=== PATIENT | female | born 1960 | race African-American/Black ===

== ENCOUNTER 2020-07-21 01:57 | Inpatient (IN) | payer MEDICAID, OTHER ==
[~2020-07-21] VITALS: Ht 170.2 cm; Wt 74.8 kg
[~2020-07-21 01:57] MED LIST: AMLO10TA4 PO; Aspirin PO; CLOP-31 PO; Furosemide PO; Isosorbide Mononitrate PO; QUET25TA PO
[2020-07-21] MEDS ORDERED: NITROGLYCERIN OINT 1GM/INCH UDPKT TD ONE (02:30)
[2020-07-21] MEDS ORDERED: LORAZEPAM 2MG/ML CPJ IV ONE (02:30)
[2020-07-21] MEDS ORDERED: FUROSEMIDE 40MG/4ML VIAL IV ONE (02:30)
[2020-07-21 02:44] LABS: BASOPHILS % 0.9 % (0.0-2.0); EOSINOPHILS % 1.6 % (0.0-5.0); HEMATOCRIT. 39.5 % (36.0-48.0); HEMOGLOBIN. 12.8 g/dL (12.0-16.0); LYMPHOCYTES % 30.3 % (20.0-50.0); MEAN CORPUSCULAR HEMOGLOBIN 28.8 pg (28.0-32.0); MEAN CORPUSCULAR VOLUME 89.1 fL (81.0-99.0); MEAN PLATELET VOLUME 8.6 fl (7.4-10.4); MONOCYTES % 9.8 % (2.0-8.0); NEUTROPHILS % 57.4 % (40.0-76.0); PLATELET 278 x1000/uL (130-400); RED BLOOD CELL COUNT 4.43 mill/uL (4.2-5.4); RED CELL DISTRIBUTION WIDTH 15.9 % (11.6-14.6)
[2020-07-21 02:47] LABS: CHLORIDE 108 mEq/L (98-107)
[2020-07-21 02:51] LABS: ETHANOL BLOOD < 10 mg/dL
[2020-07-21 06:08] LABS: *COCAINE SCREEN URINE PRESUMTIVE POSITIVE (NEGATIVE)
[2020-07-21 06:09] LABS: *AMPHETAMINES SCREEN URINE NEGATIVE (NEGATIVE); *BARBITURATES SCREEN URINE NEGATIVE (NEGATIVE); *BENZODIAZEPINES SCREEN URINE NEGATIVE (NEGATIVE); CANNABINOID URINE SCREEN NEGATIVE (NEGATIVE); METHADONE URINE SCREEN NEGATIVE (NEGATIVE); OPIATES URINE SCREEN NEGATIVE (NEGATIVE); PHENCYCLIDINE URINE SCREEN NEGATIVE (NEGATIVE)
[2020-07-21] MEDS: POTASSIUM CHLORIDE 20MEQ TABLET SR PO SCH (10:25)
[2020-07-21] MEDS: FUROSEMIDE 40MG/4ML VIAL IVP SCH ×2 (10:25→18:03)
[2020-07-21] MEDS: ASPIRIN 81MG TABLET PO SCH (10:25)
[2020-07-21 10:35] VITALS: BP 109/83
[2020-07-21 12:00] VITALS: BP 103/79
[2020-07-21] MEDS: AMIODARONE HCL 200 MG TABLET PO SCH ×2 (12:09→18:04)
[2020-07-21] MEDS: DILTIAZEM HCL 30MG TABLET PO SCH ×2 (14:00→22:18)
[2020-07-21 16:00] VITALS: BP 119/80
[2020-07-21] MEDS ORDERED: POTASSIUM CHLORIDE 20MEQ TABLET SR PO SCH (17:45)
[2020-07-21] MEDS: SPIRONOLACTONE 25MG TABLET PO SCH (18:04)
[2020-07-21] MEDS ORDERED: QUETIAPINE FUMARATE 50MG TABLET PO SCH (21:00)
[2020-07-21] MEDS: HYDROCODONE/ACETAMINOPHEN 5/325MG TABLET PO PRN (22:20)
[2020-07-22] VITALS: BP 104/49
[2020-07-22 04:00] VITALS: BP 99/53
[2020-07-22] MEDS: DILTIAZEM HCL 30MG TABLET PO SCH ×3 (06:00→21:05)
[2020-07-22 07:52] LABS: BASOPHILS % 0.9 % (0.0-2.0); EOSINOPHILS % 2.5 % (0.0-5.0); HEMATOCRIT. 40.2 % (36.0-48.0); HEMOGLOBIN. 12.6 g/dL (12.0-16.0); LYMPHOCYTES % 27.5 % (20.0-50.0); MEAN CORPUSCULAR HEMOGLOBIN 27.9 pg (28.0-32.0); MEAN CORPUSCULAR VOLUME 89.2 fL (81.0-99.0); MEAN PLATELET VOLUME 9.6 fl (7.4-10.4); MONOCYTES % 11.2 % (2.0-8.0); NEUTROPHILS % 57.9 % (40.0-76.0); PLATELET 247 x1000/uL (130-400); RED BLOOD CELL COUNT 4.51 mill/uL (4.2-5.4)
[2020-07-22 07:54] LABS: CHLORIDE 105 mEq/L (98-107)
[2020-07-22 08:00] VITALS: BP 100/66
[2020-07-22] MEDS: ASPIRIN 81MG TABLET PO SCH (08:38)
[2020-07-22] MEDS: SPIRONOLACTONE 25MG TABLET PO SCH (08:38)
[2020-07-22] MEDS: POTASSIUM CHLORIDE 20MEQ TABLET SR PO SCH (08:39)
[2020-07-22] MEDS: AMIODARONE HCL 200 MG TABLET PO SCH ×3 (08:39→17:15)
[2020-07-22] MEDS: FUROSEMIDE 40MG/4ML VIAL IVP SCH ×2 (08:40→17:00)
[2020-07-22] MEDS: ENOXAPARIN 40MG/0.4ML SYR SUBCUT SCH (08:41)
[2020-07-22] MEDS ORDERED: *PATIENT'S OWN MEDICATION STORAGE XX SCH (10:00)
[2020-07-22 12:00] VITALS: BP 101/74
[2020-07-22] MEDS ORDERED: POTA20TA82 PO (12:20)
[2020-07-22] MEDS ORDERED: SPIR25TA PO (12:20)
[2020-07-22] MEDS ORDERED: ASPI-1406 MT (12:20)
[2020-07-22] MEDS ORDERED: CARV3.1242 MT (12:20)
[2020-07-22] MEDS ORDERED: LOSA25TA26 MT (12:20)
[2020-07-22] MEDS ORDERED: FURO-151 MT (12:20)
[2020-07-22] MEDS ORDERED: BUDE0.5A3 NEB (12:35)
[2020-07-22] MEDS: HYDROCODONE/ACETAMINOPHEN 5/325MG TABLET PO PRN ×2 (12:36→22:52)
[2020-07-22] MEDS ORDERED: AMI2 MT (13:00)
[2020-07-22 14:45] VITALS: BP_SYST 103; BP_SYST 105; BP_DIAS 55; BP_DIAS 74
[2020-07-22 20:00] VITALS: BP 114/89
[2020-07-22] MEDS: OLANZAPINE 10MG TABLET PO SCH (21:05)
[2020-07-22] MEDS ORDERED: CLONAZEPAM 0.5MG TABLET PO PRN (22:00)
[2020-07-22] MEDS ORDERED: OLANZAPINE 5MG TABLET PO PRN (22:00)
[2020-07-22] MEDS ORDERED: CLONAZEPAM 0.5MG TABLET PO SCH (22:00)
[2020-07-23] VITALS: BP 109/81
[2020-07-23 04:00] VITALS: BP 103/70
[2020-07-23] MEDS: DILTIAZEM HCL 30MG TABLET PO SCH ×2 (05:41→13:03)
[2020-07-23] MEDS: AMIODARONE HCL 200 MG TABLET PO SCH ×2 (06:23→12:15)
[2020-07-23 08:00] VITALS: BP 114/75
[2020-07-23] MEDS: ENOXAPARIN 40MG/0.4ML SYR SUBCUT SCH (09:59)
[2020-07-23] MEDS: SPIRONOLACTONE 25MG TABLET PO SCH (09:59)
[2020-07-23] MEDS: POTASSIUM CHLORIDE 20MEQ TABLET SR PO SCH (09:59)
[2020-07-23] MEDS: OLANZAPINE 10MG TABLET PO SCH (09:59)
[2020-07-23] MEDS: ASPIRIN 81MG TABLET PO SCH (09:59)
[2020-07-23] MEDS: FUROSEMIDE 40MG/4ML VIAL IVP SCH (10:00)
[2020-07-23] MEDS ORDERED: IPRATROPIUM/ALBUTEROL 0.5-3(2.5)MG/3ML NEB HHN PRN (10:45)
[2020-07-23 12:00] VITALS: BP 103/74
[2020-07-23] MEDS ORDERED: OLAN10TA19 PO (12:37)
== END 2020-07-23 14:34 | disposition home or self-care (01) | DRG 194 ==
LOC: ER 01:57 → 5WST 04:20 → ENRESERV 08:00 → 5WST 10:30
PROVIDERS: ADMIT Internal Medicine; ATTEND Internal Medicine
DX: I11.0 Hypertensive heart disease with heart failure (principal); I50.23 Acute on chronic systolic (congestive) heart failure; E44.1 Mild protein-calorie malnutrition; E87.8 Other disorders of electrolyte and fluid balance, not elsewhere classified; F14.90 Cocaine use, unspecified, uncomplicated; F17.210 Nicotine dependence, cigarettes, uncomplicated; F20.9 Schizophrenia, unspecified; F43.10 Post-traumatic stress disorder, unspecified; I25.10 Atherosclerotic heart disease of native coronary artery without angina pectoris; I27.20 Pulmonary hypertension, unspecified; I42.9 Cardiomyopathy, unspecified; I47.1 Supraventricular tachycardia; J44.9 Chronic obstructive pulmonary disease, unspecified; M19.90 Unspecified osteoarthritis, unspecified site; R09.89 Other specified symptoms and signs involving the circulatory and respiratory systems; Z20.822 Contact with and (suspected) exposure to COVID-19; Z91.19 Patient's noncompliance with other medical treatment and regimen; Z88.0 Allergy status to penicillin; Z79.899 Other long term (current) drug therapy; Z79.82 Long term (current) use of aspirin; Z71.51 Drug abuse counseling and surveillance of drug abuser; Z68.25 Body mass index [BMI] 25.0-25.9, adult; I25.2 Old myocardial infarction
CPT/HCPCS: 36415; 71045; 80048; 80053; 80061; 80305; 80320; 83880; 84443; 84484; 85025; 87426; 93005; 93306; 99291; J1650; J1940; J2060; G0480

== ENCOUNTER 2020-08-04 00:35 | Emergency (ER) | payer MEDICAID ==
[~2020-08-04] VITALS: Ht 165.1 cm; Wt 56.0 kg
[~2020-08-04 00:35] MED LIST changes: +AMI2 MT; -AMLO10TA4 PO; +ASPI-1406 MT; +BUDE0.5A3 NEB; +CARV3.1242 MT; +FURO-151 MT; +LOSA25TA26 MT; +OLAN10TA19 PO; +POTA20TA82 PO; +SPIR25TA PO
[2020-08-04] MEDS ORDERED: FUROSEMIDE 40MG/4ML VIAL IV ONE (01:00)
[2020-08-04 01:20] LABS: BASOPHILS % 1.2 % (0.0-2.0); EOSINOPHILS % 1.3 % (0.0-5.0); HEMATOCRIT. 42.1 % (36.0-48.0); HEMOGLOBIN. 13.7 g/dL (12.0-16.0); LYMPHOCYTES % 21.3 % (20.0-50.0); MEAN CORPUSCULAR HEMOGLOBIN 29.2 pg (28.0-32.0); MEAN CORPUSCULAR VOLUME 89.6 fL (81.0-99.0); MEAN PLATELET VOLUME 9.1 fl (7.4-10.4); MONOCYTES % 7.6 % (2.0-8.0); NEUTROPHILS % 68.6 % (40.0-76.0); PLATELET 238 x1000/uL (130-400); RED CELL DISTRIBUTION WIDTH 16.7 % (11.6-14.6)
[2020-08-04 01:27] LABS: CHLORIDE 111 mEq/L (98-107)
[2020-08-04 14:21] VITALS: BP 145/99
== END 2020-08-04 14:23 | disposition home or self-care (01) ==
LOC: ER 00:35
DX: T40.5X1A Poisoning by cocaine, accidental (unintentional), initial encounter (principal); R07.89 Other chest pain; F14.188 Cocaine abuse with other cocaine-induced disorder; Y92.89 Other specified places as the place of occurrence of the external cause; R79.89 Other specified abnormal findings of blood chemistry; I11.0 Hypertensive heart disease with heart failure; I50.9 Heart failure, unspecified; I25.2 Old myocardial infarction; Z86.73 Personal history of transient ischemic attack (TIA), and cerebral infarction without residual deficits; Z79.82 Long term (current) use of aspirin; Z79.899 Other long term (current) drug therapy
CPT/HCPCS: 36415; 71045; 80053; 80320; 83880; 84484; 85025; 93005; 96374; 99285; J1940; G0480

== ENCOUNTER 2020-08-15 04:31 | Inpatient (IN) | payer MEDICAID ==
[~2020-08-15] VITALS: Ht 162.6 cm; Wt 68.0 kg
[2020-08-15] MEDS ORDERED: LORAZEPAM 2MG/ML CPJ IV ONE (06:45)
[2020-08-15 07:00] LABS: BASOPHILS % 0.7 % (0.0-2.0); EOSINOPHILS % 3.1 % (0.0-5.0); HEMOGLOBIN. 12.8 g/dL (12.0-16.0); LYMPHOCYTES % 19.9 % (20.0-50.0); MEAN CORPUSCULAR HEMOGLOBIN 27.9 pg (28.0-32.0); MEAN PLATELET VOLUME 9.2 fl (7.4-10.4); MONOCYTES % 10.1 % (2.0-8.0); NEUTROPHILS % 66.2 % (40.0-76.0); PLATELET 294 x1000/uL (130-400); RED BLOOD CELL COUNT 4.61 mill/uL (4.2-5.4)
[2020-08-15 07:03] LABS: CHLORIDE 111 mEq/L (98-107)
[2020-08-15] MEDS ORDERED: ENOXAPARIN 100MG/ML SYR SUBCUT ONE (08:30)
[2020-08-15] MEDS ORDERED: ASPIRIN 81MG TABLET PO ONE (08:30)
[2020-08-15] MEDS: NITROGLYCERIN 0.4MG TABLET SL SL PRN ×2 (08:39→10:23)
[2020-08-15] MEDS ORDERED: ONDANSETRON HCL 4MG/2ML INJ IV PRN (13:15)
[2020-08-15] MEDS ORDERED: LOSARTAN POTASSIUM 50 MG TABLET PO SCH (13:15)
[2020-08-15] MEDS ORDERED: ACETAMINOPHEN 325MG TABLET PO PRN (13:15)
[2020-08-15] MEDS ORDERED: LORAZEPAM 2MG/ML CPJ IV PRN (13:30)
[2020-08-15 13:39] VITALS: BP 151/58
[2020-08-15] MEDS ORDERED: HYDR-4350 MT (13:41)
[2020-08-15] MEDS ORDERED: FUROSEMIDE 40MG/4ML VIAL IVP SCH (15:30)
[2020-08-15 15:38] VITALS: BP 160/107
[2020-08-15 15:46] VITALS: BP 151/107
[2020-08-15 16:00] VITALS: BP 151/78
[2020-08-15] MEDS ORDERED: IPRATROPIUM/ALBUTEROL 0.5-3(2.5)MG/3ML NEB HHN PRN (16:45)
[2020-08-15] MEDS ORDERED: ENOXAPARIN 60MG/0.6ML SYR SUBCUT SCH (21:00)
[2020-08-16] MEDS ORDERED: ASPIRIN 81MG TABLET PO SCH (09:00)
== END 2020-08-15 17:00 | disposition left against medical advice (07) | DRG 190 ==
LOC: ER 04:53 → 3WST 11:19 → ENRESERV 12:21
PROVIDERS: ADMIT Internal Medicine; ATTEND Internal Medicine
DX: I21.4 Non-ST elevation (NSTEMI) myocardial infarction (principal); D72.819 Decreased white blood cell count, unspecified; I11.0 Hypertensive heart disease with heart failure; E11.9 Type 2 diabetes mellitus without complications; E44.0 Moderate protein-calorie malnutrition; E78.5 Hyperlipidemia, unspecified; E87.8 Other disorders of electrolyte and fluid balance, not elsewhere classified; F14.10 Cocaine abuse, uncomplicated; F17.210 Nicotine dependence, cigarettes, uncomplicated; F20.9 Schizophrenia, unspecified; I07.1 Rheumatic tricuspid insufficiency; I25.10 Atherosclerotic heart disease of native coronary artery without angina pectoris; I27.20 Pulmonary hypertension, unspecified; I42.0 Dilated cardiomyopathy; Z53.29 Procedure and treatment not carried out because of patient's decision for other reasons; I50.23 Acute on chronic systolic (congestive) heart failure; J44.9 Chronic obstructive pulmonary disease, unspecified; I47.1 Supraventricular tachycardia; I25.2 Old myocardial infarction; Z86.73 Personal history of transient ischemic attack (TIA), and cerebral infarction without residual deficits; Z91.19 Patient's noncompliance with other medical treatment and regimen; Z88.1 Allergy status to other antibiotic agents; Z79.899 Other long term (current) drug therapy; Z79.82 Long term (current) use of aspirin; Z71.6 Tobacco abuse counseling
CPT/HCPCS: 36415; 71045; 80053; 80061; 82962; 83880; 84484; 85025; 93005; 99291; J1650; J2060

== ENCOUNTER 2020-08-16 07:21 | Inpatient (IN) | payer MEDICAID ==
[~2020-08-16] VITALS: Ht 172.7 cm; Wt 61.2 kg
[2020-08-16] VITALS (9 sets, daily range): BP systolic 104–143; BP diastolic 37–96
[~2020-08-16 07:21] MED LIST changes: +HYDR-4350 MT
[2020-08-16 08:03] LABS: BASOPHILS % 0.7 % (0.0-2.0); EOSINOPHILS % 0.6 % (0.0-5.0); HEMATOCRIT. 43.2 % (36.0-48.0); HEMOGLOBIN. 13.5 g/dL (12.0-16.0); LYMPHOCYTES % 18.5 % (20.0-50.0); MEAN CORPUSCULAR HEMOGLOBIN 27.8 pg (28.0-32.0); MEAN CORPUSCULAR VOLUME 88.8 fL (81.0-99.0); MEAN PLATELET VOLUME 9.2 fl (7.4-10.4); MONOCYTES % 11.5 % (2.0-8.0); NEUTROPHILS % 68.7 % (40.0-76.0); PLATELET 287 x1000/uL (130-400); RED BLOOD CELL COUNT 4.86 mill/uL (4.2-5.4); RED CELL DISTRIBUTION WIDTH 16.9 % (11.6-14.6)
[2020-08-16 08:09] LABS: CHLORIDE 107 mEq/L (98-107)
[2020-08-16] MEDS ORDERED: ENOXAPARIN 80MG/0.8ML SYR SUBCUT ONE (10:15)
[2020-08-16] MEDS ORDERED: ASPIRIN 325MG EC TABLET PO ONE (10:15)
[2020-08-16] MEDS: MORPHINE SULFATE 2 MG/ML CPJ (NOT FOR IM USE) IV PRN (13:29)
[2020-08-16 14:38] LABS: *AMPHETAMINES SCREEN URINE NEGATIVE (NEGATIVE); *BARBITURATES SCREEN URINE NEGATIVE (NEGATIVE); *BENZODIAZEPINES SCREEN URINE NEGATIVE (NEGATIVE); *COCAINE SCREEN URINE NEGATIVE (NEGATIVE); METHADONE URINE SCREEN NEGATIVE (NEGATIVE); OPIATES URINE SCREEN PRESUMTIVE POSITIVE (NEGATIVE); PHENCYCLIDINE URINE SCREEN NEGATIVE (NEGATIVE)
[2020-08-16 14:39] LABS: CANNABINOID URINE SCREEN NEGATIVE (NEGATIVE)
[2020-08-16] MEDS ORDERED: CLOPIDOGREL 75MG TABLET PO NR (15:15)
[2020-08-16] MEDS ORDERED: NITROGLYCERIN 0.4MG TABLET SL SL PRN (15:15)
[2020-08-16] MEDS ORDERED: ATORVASTATIN CALCIUM 40MG TABLET PO NR (15:15)
[2020-08-16] MEDS ORDERED: ACETAMINOPHEN 325MG TABLET PO PRN (15:15)
[2020-08-16] MEDS ORDERED: ONDANSETRON HCL 4MG/2ML INJ IV PRN (15:15)
[2020-08-16] MEDS ORDERED: CLONIDINE 0.1MG TABLET PO PRN (15:15)
[2020-08-16] MEDS ORDERED: HYDRALAZINE 20MG/ML VIAL IV PRN (15:15)
[2020-08-16] MEDS: AMLODIPINE 10MG TABLET PO SCH (16:25)
[2020-08-16] MEDS: MORPHINE SULFATE 4 MG/ML CPJ (NOT FOR IM USE) IV PRN ×2 (19:31→23:37)
[2020-08-16] MEDS: ENOXAPARIN 60MG/0.6ML SYR SUBCUT SCH (20:34)
[2020-08-16] MEDS ORDERED: TRAZODONE HCL 50MG TABLET PO PRN (21:00)
[2020-08-17] VITALS (30 sets, daily range): BP systolic 104–146; BP diastolic 34–98
[2020-08-17] MEDS: MORPHINE SULFATE 2 MG/ML CPJ (NOT FOR IM USE) IV PRN ×4 (04:13→18:49)
[2020-08-17 05:56] LABS: BASOPHILS % 1.2 % (0.0-2.0); EOSINOPHILS % 1.7 % (0.0-5.0); HEMATOCRIT. 40.9 % (36.0-48.0); LYMPHOCYTES % 21.8 % (20.0-50.0); MEAN CORPUSCULAR HEMOGLOBIN 28.4 pg (28.0-32.0); MEAN CORPUSCULAR VOLUME 89.6 fL (81.0-99.0); MEAN PLATELET VOLUME 9.1 fl (7.4-10.4); MONOCYTES % 13.6 % (2.0-8.0); NEUTROPHILS % 61.7 % (40.0-76.0); PLATELET 291 x1000/uL (130-400); RED BLOOD CELL COUNT 4.57 mill/uL (4.2-5.4); RED CELL DISTRIBUTION WIDTH 17.2 % (11.6-14.6)
[2020-08-17 06:04] LABS: LDL CHOLESTEROL 93 mg/dL (5-100)
[2020-08-17 06:14] LABS: CHLORIDE 106 mEq/L (98-107); HDL CHOLESTEROL 39 mg/dL (40-59)
[2020-08-17 06:24] LABS: INR 1.1; PROTHROMBIN TIME 11.9 sec (9.6-11.0)
[2020-08-17] MEDS: CLOPIDOGREL 75MG TABLET PO SCH (09:57)
[2020-08-17] MEDS: AMLODIPINE 10MG TABLET PO SCH (09:58)
[2020-08-17] MEDS: ENOXAPARIN 60MG/0.6ML SYR SUBCUT SCH ×2 (09:59→21:00)
[2020-08-17] MEDS: ASPIRIN 81MG EC TABLET PO SCH (10:01)
[2020-08-17] MEDS ORDERED: MORPHINE SULFATE 4 MG/ML CPJ (NOT FOR IM USE) IV PRN (13:00)
[2020-08-18] VITALS (28 sets, daily range): BP systolic 94–146; BP diastolic 45–114
[2020-08-18 05:50] LABS: BASOPHILS % 0.6 % (0.0-2.0); EOSINOPHILS % 2.9 % (0.0-5.0); HEMATOCRIT. 36.6 % (36.0-48.0); HEMOGLOBIN. 11.6 g/dL (12.0-16.0); LYMPHOCYTES % 25.4 % (20.0-50.0); MEAN CORPUSCULAR HEMOGLOBIN 28.6 pg (28.0-32.0); MEAN CORPUSCULAR VOLUME 90.2 fL (81.0-99.0); MEAN PLATELET VOLUME 9.2 fl (7.4-10.4); MONOCYTES % 11.9 % (2.0-8.0); NEUTROPHILS % 59.2 % (40.0-76.0); PLATELET 259 x1000/uL (130-400); RED BLOOD CELL COUNT 4.06 mill/uL (4.2-5.4); RED CELL DISTRIBUTION WIDTH 17.2 % (11.6-14.6)
[2020-08-18 05:57] LABS: CHLORIDE 106 mEq/L (98-107)
[2020-08-18] MEDS ORDERED: CARVEDILOL 3.125 MG TABLET PO SCH (09:00)
[2020-08-18] MEDS ORDERED: LOSARTAN POTASSIUM 25 MG TABLET PO SCH (09:00)
[2020-08-18] MEDS ORDERED: ASPI-1406 MT (10:14)
[2020-08-18] MEDS ORDERED: CLOP-31 PO (10:14)
[2020-08-18] MEDS ORDERED: ATOR40TA70 MT (10:14)
[2020-08-18] MEDS: ASPIRIN 81MG EC TABLET PO SCH (10:16)
[2020-08-18] MEDS: CLOPIDOGREL 75MG TABLET PO SCH (10:16)
[2020-08-18] MEDS: AMLODIPINE 10MG TABLET PO SCH (10:17)
[2020-08-18] MEDS: ENOXAPARIN 60MG/0.6ML SYR SUBCUT SCH (10:19)
[2020-08-18] MEDS ORDERED: MAGNESIUM 2 G PREMIX 50 ML IV SCH (12:00)
[2020-08-18] MEDS ORDERED: MORPHINE SULFATE 2 MG/ML CPJ (NOT FOR IM USE) IV PRN (15:26)
== END 2020-08-18 12:45 | disposition home or self-care (01) | DRG 190 ==
LOC: ER 07:21 → CVICU 11:54 → ENRESERV 15:41
PROVIDERS: ADMIT Internal Medicine; ATTEND Internal Medicine
DX: I21.4 Non-ST elevation (NSTEMI) myocardial infarction (principal); I11.0 Hypertensive heart disease with heart failure; I42.0 Dilated cardiomyopathy; I16.1 Hypertensive emergency; I50.9 Heart failure, unspecified; E11.9 Type 2 diabetes mellitus without complications; F20.9 Schizophrenia, unspecified; F14.10 Cocaine abuse, uncomplicated; J44.9 Chronic obstructive pulmonary disease, unspecified; I07.1 Rheumatic tricuspid insufficiency; R79.89 Other specified abnormal findings of blood chemistry; R16.0 Hepatomegaly, not elsewhere classified; D64.9 Anemia, unspecified; E83.42 Hypomagnesemia; E43 Unspecified severe protein-calorie malnutrition; Z91.19 Patient's noncompliance with other medical treatment and regimen; Z68.20 Body mass index [BMI] 20.0-20.9, adult; Z79.51 Long term (current) use of inhaled steroids; I25.2 Old myocardial infarction; Z86.73 Personal history of transient ischemic attack (TIA), and cerebral infarction without residual deficits; Z79.899 Other long term (current) drug therapy; Z79.02 Long term (current) use of antithrombotics/antiplatelets; Z79.82 Long term (current) use of aspirin
CPT/HCPCS: 36415; 71045; 76705; 80053; 80061; 80305; 83036; 83735; 83880; 84484; 85025; 93005; 99291; J1650; J2270; J3475

== ENCOUNTER 2020-09-11 07:27 | Inpatient (IN) | payer MEDICAID ==
[~2020-09-11] VITALS: Ht 165.1 cm; Wt 62.1 kg
[~2020-09-11 07:27] MED LIST changes: +ALBU18HF2 IH; +ATOR40TA70 MT; -Aspirin PO; +FLUT1DIS3 INH; -Furosemide PO; +HYDR-4001 MT; -Isosorbide Mononitrate PO
[2020-09-11] MEDS ORDERED: ASPIRIN 81MG TABLET PO ONE (07:45)
[2020-09-11 08:31] LABS: BASOPHILS % 0.9 % (0.0-2.0); EOSINOPHILS % 14.3 % (0.0-5.0); HEMATOCRIT. 39.7 % (36.0-48.0); HEMOGLOBIN. 12.6 g/dL (12.0-16.0); MEAN CORPUSCULAR HEMOGLOBIN 27.5 pg (28.0-32.0); MEAN CORPUSCULAR VOLUME 86.7 fL (81.0-99.0); MEAN PLATELET VOLUME 9.1 fl (7.4-10.4); MONOCYTES % 7.7 % (2.0-8.0); NEUTROPHILS % 62.1 % (40.0-76.0); PLATELET 256 x1000/uL (130-400); RED BLOOD CELL COUNT 4.58 mill/uL (4.2-5.4)
[2020-09-11 08:32] LABS: CHLORIDE 106 mEq/L (98-107)
[2020-09-11] MEDS ORDERED: ACETAMINOPHEN 325MG TABLET PO ONE (12:45)
[2020-09-11] MEDS ORDERED: ENOXAPARIN 80MG/0.8ML SYR SUBCUT ONE (12:45)
[2020-09-11] MEDS ORDERED: IPRATROPIUM/ALBUTEROL 0.5-3(2.5)MG/3ML NEB HHN PRN (15:15)
[2020-09-11] MEDS ORDERED: CLONIDINE 0.1MG TABLET PO PRN (15:15)
[2020-09-11] MEDS ORDERED: DIPHENHYDRAMINE 50MG/ML VIAL IV PRN (15:15)
[2020-09-11] MEDS ORDERED: ACETAMINOPHEN 325MG TABLET PO PRN (15:15)
[2020-09-11 16:00] VITALS: BP 154/109
[2020-09-11 16:15] VITALS: BP 154/109
[2020-09-11] MEDS ORDERED: INFLUENZA VACCINE 05/PF 0.5 ML VIAL IM ONE (16:30)
[2020-09-11] MEDS ORDERED: PNEUMOCOCCAL 23-VAL P-SAC VAC 0.5 ML IM ONE (16:30)
[2020-09-11] MEDS ORDERED: DEXTROSE 50% WATER 50ML SYRINGE IV PRN (17:00)
[2020-09-11] MEDS: AMIODARONE HCL 200 MG TABLET PO SCH (17:00)
[2020-09-11] MEDS ORDERED: NICO-681 TD (17:02)
[2020-09-11] MEDS ORDERED: FLUT15.844 BOTHNSTRLS (17:02)
[2020-09-11] MEDS ORDERED: ISORBIDE (17:02)
[2020-09-11] MEDS ORDERED: ALBU2.5V13 IH (17:02)
[2020-09-11] MEDS ORDERED: IPRATROPIUM INH (17:02)
[2020-09-11] MEDS ORDERED: ISOS30TA91 PO (17:02)
[2020-09-11] MEDS ORDERED: NITR0.4T49 SL (17:02)
[2020-09-11] MEDS ORDERED: LOSA50TA3 PO (17:02)
[2020-09-11] MEDS ORDERED: PROM6.254 PO (17:02)
[2020-09-11] MEDS ORDERED: IBUP-2030 PO (17:02)
[2020-09-11] MEDS: BLOOD SUGAR DIAGNOSTIC STRIP TEST SCH ×2 (17:20→21:53)
[2020-09-11] MEDS: CARVEDILOL 3.125 MG TABLET PO SCH (17:45)
[2020-09-11] MEDS: QUETIAPINE FUMARATE 25MG TABLET PO SCH (17:45)
[2020-09-11] MEDS: INSULIN LISPRO 100 UNITS/ML SUBCUT SCH ×2 (17:50→21:00)
[2020-09-11 20:00] VITALS: BP 109/72
[2020-09-12 00:11] VITALS: BP 122/93
[2020-09-12] MEDS: MORPHINE SULFATE 2 MG/ML CPJ (NOT FOR IM USE) IV PRN ×2 (02:20→06:20)
[2020-09-12 04:00] VITALS: BP 105/79
[2020-09-12 06:40] LABS: CHLORIDE 109 mEq/L (98-107)
[2020-09-12 06:47] LABS: LDL CHOLESTEROL 62 mg/dL (5-100)
[2020-09-12 06:49] LABS: HDL CHOLESTEROL 35 mg/dL (40-59)
[2020-09-12] MEDS: INSULIN LISPRO 100 UNITS/ML SUBCUT SCH ×4 (06:52→21:00)
[2020-09-12] MEDS: BLOOD SUGAR DIAGNOSTIC STRIP TEST SCH ×4 (06:52→21:29)
[2020-09-12 07:04] LABS: EOSINOPHILS % 13.6 % (0.0-5.0); HEMATOCRIT. 38.2 % (36.0-48.0); HEMOGLOBIN. 12.1 g/dL (12.0-16.0); LYMPHOCYTES % 18.4 % (20.0-50.0); MEAN CORPUSCULAR HEMOGLOBIN 27.7 pg (28.0-32.0); MEAN CORPUSCULAR VOLUME 87.4 fL (81.0-99.0); MEAN PLATELET VOLUME 9.3 fl (7.4-10.4); MONOCYTES % 8.1 % (2.0-8.0); NEUTROPHILS % 58.9 % (40.0-76.0); PLATELET 262 x1000/uL (130-400); RED BLOOD CELL COUNT 4.37 mill/uL (4.2-5.4); RED CELL DISTRIBUTION WIDTH 17.1 % (11.6-14.6)
[2020-09-12 08:10] VITALS: BP 108/81
[2020-09-12 08:39] LABS: T4 FREE 1.09 ng/dL (0.76-1.46)
[2020-09-12] MEDS: ENOXAPARIN 40MG/0.4ML SYR SUBCUT SCH (08:52)
[2020-09-12] MEDS: CLOPIDOGREL 75MG TABLET PO SCH (08:53)
[2020-09-12] MEDS: LOSARTAN POTASSIUM 25 MG TABLET PO SCH (08:54)
[2020-09-12] MEDS: QUETIAPINE FUMARATE 25MG TABLET PO SCH ×2 (08:54→17:09)
[2020-09-12] MEDS: ASPIRIN 81MG EC TABLET PO SCH (08:54)
[2020-09-12] MEDS: ATORVASTATIN CALCIUM 40MG TABLET PO SCH (08:54)
[2020-09-12] MEDS: AMIODARONE HCL 200 MG TABLET PO SCH ×2 (08:54→21:29)
[2020-09-12] MEDS: SPIRONOLACTONE 25MG TABLET PO SCH (08:55)
[2020-09-12] MEDS: POTASSIUM CHLORIDE 20MEQ TABLET SR PO SCH (08:55)
[2020-09-12] MEDS: CARVEDILOL 3.125 MG TABLET PO SCH ×2 (08:56→21:29)
[2020-09-12] MEDS: FUROSEMIDE 40MG/4ML VIAL IV SCH (08:56)
[2020-09-12 12:15] VITALS: BP 103/82
[2020-09-12 13:34] LABS: *AMPHETAMINES SCREEN URINE NEGATIVE (NEGATIVE); *BARBITURATES SCREEN URINE NEGATIVE (NEGATIVE)
[2020-09-12 13:35] LABS: *BENZODIAZEPINES SCREEN URINE NEGATIVE (NEGATIVE); *COCAINE SCREEN URINE NEGATIVE (NEGATIVE); CANNABINOID URINE SCREEN NEGATIVE (NEGATIVE); METHADONE URINE SCREEN NEGATIVE (NEGATIVE); OPIATES URINE SCREEN PRESUMTIVE POSITIVE (NEGATIVE); PHENCYCLIDINE URINE SCREEN NEGATIVE (NEGATIVE)
[2020-09-12 15:10] LABS: CREATINE KINASE MB FRACTION 2.9 ng/mL (0.5-3.6)
[2020-09-12 16:02] VITALS: BP 114/76
[2020-09-12 20:00] VITALS: BP 112/77
[2020-09-12] MEDS: HYDROCODONE/ACETAMINOPHEN 5/325MG TABLET PO PRN (22:55)
[2020-09-13] VITALS: BP 103/67
[2020-09-13 00:30] LABS: CREATINE KINASE MB FRACTION 2.6 ng/mL (0.5-3.6)
[2020-09-13 04:00] VITALS: BP 116/77
[2020-09-13] MEDS: ONDANSETRON HCL 4MG/2ML INJ IV PRN (06:04)
[2020-09-13] MEDS: BLOOD SUGAR DIAGNOSTIC STRIP TEST SCH ×3 (06:22→21:00)
[2020-09-13] MEDS: INSULIN LISPRO 100 UNITS/ML SUBCUT SCH ×3 (07:50→22:10)
[2020-09-13 08:00] VITALS: BP 121/77
[2020-09-13 09:09] LABS: BASOPHILS % 0.7 % (0.0-2.0); EOSINOPHILS % 14.9 % (0.0-5.0); HEMATOCRIT. 36.8 % (36.0-48.0); LYMPHOCYTES % 18.6 % (20.0-50.0); MEAN CORPUSCULAR HEMOGLOBIN 28.3 pg (28.0-32.0); MEAN PLATELET VOLUME 9.2 fl (7.4-10.4); MONOCYTES % 10.2 % (2.0-8.0); NEUTROPHILS % 55.6 % (40.0-76.0); PLATELET 249 x1000/uL (130-400); RED BLOOD CELL COUNT 4.23 mill/uL (4.2-5.4); RED CELL DISTRIBUTION WIDTH 16.9 % (11.6-14.6)
[2020-09-13] MEDS: CLOPIDOGREL 75MG TABLET PO SCH (10:04)
[2020-09-13] MEDS: FUROSEMIDE 40MG/4ML VIAL IV SCH (10:04)
[2020-09-13] MEDS: ASPIRIN 81MG EC TABLET PO SCH (10:05)
[2020-09-13] MEDS: CARVEDILOL 3.125 MG TABLET PO SCH ×2 (10:05→21:00)
[2020-09-13] MEDS: ATORVASTATIN CALCIUM 40MG TABLET PO SCH (10:05)
[2020-09-13] MEDS: QUETIAPINE FUMARATE 25MG TABLET PO SCH ×2 (10:05→18:20)
[2020-09-13] MEDS: AMIODARONE HCL 200 MG TABLET PO SCH ×2 (10:05→22:11)
[2020-09-13] MEDS: POTASSIUM CHLORIDE 20MEQ TABLET SR PO SCH (10:06)
[2020-09-13] MEDS: SPIRONOLACTONE 25MG TABLET PO SCH (10:06)
[2020-09-13] MEDS: LOSARTAN POTASSIUM 25 MG TABLET PO SCH (10:06)
[2020-09-13] MEDS: ENOXAPARIN 40MG/0.4ML SYR SUBCUT SCH (10:07)
[2020-09-13 10:54] LABS: CHLORIDE 106 mEq/L (98-107)
[2020-09-13 11:03] LABS: CREATINE KINASE 46 IU/L (26-192)
[2020-09-13 11:05] LABS: CREATINE KINASE MB FRACTION 2.8 ng/mL (0.5-3.6)
[2020-09-13 12:00] VITALS: BP 110/73
[2020-09-13 16:00] VITALS: BP 94/60
[2020-09-13 20:00] VITALS: BP 95/67
[2020-09-13] MEDS: HYDROCODONE/ACETAMINOPHEN 5/325MG TABLET PO PRN (22:06)
[2020-09-14] VITALS: BP 99/66
[2020-09-14 04:00] VITALS: BP 122/65
[2020-09-14 06:09] LABS: HEMATOCRIT. 37.6 % (36.0-48.0); HEMOGLOBIN. 11.9 g/dL (12.0-16.0); MEAN CORPUSCULAR VOLUME 88.4 fL (81.0-99.0); MEAN PLATELET VOLUME 9.2 fl (7.4-10.4); PLATELET 221 x1000/uL (130-400); RED BLOOD CELL COUNT 4.25 mill/uL (4.2-5.4); RED CELL DISTRIBUTION WIDTH 17.4 % (11.6-14.6)
[2020-09-14 06:29] LABS: CHLORIDE 106 mEq/L (98-107)
[2020-09-14] MEDS: BLOOD SUGAR DIAGNOSTIC STRIP TEST SCH ×4 (06:44→20:52)
[2020-09-14] MEDS: INSULIN LISPRO 100 UNITS/ML SUBCUT SCH ×4 (07:50→20:53)
[2020-09-14 08:00] VITALS: BP 146/65
[2020-09-14] MEDS: FUROSEMIDE 40MG/4ML VIAL IV SCH (09:11)
[2020-09-14] MEDS: LOSARTAN POTASSIUM 25 MG TABLET PO SCH (09:11)
[2020-09-14] MEDS: POTASSIUM CHLORIDE 20MEQ TABLET SR PO SCH (09:11)
[2020-09-14] MEDS: CARVEDILOL 3.125 MG TABLET PO SCH ×2 (09:11→20:50)
[2020-09-14] MEDS: ASPIRIN 81MG EC TABLET PO SCH (09:11)
[2020-09-14] MEDS: ATORVASTATIN CALCIUM 40MG TABLET PO SCH (09:12)
[2020-09-14] MEDS: AMIODARONE HCL 200 MG TABLET PO SCH ×2 (09:12→20:50)
[2020-09-14] MEDS: CLOPIDOGREL 75MG TABLET PO SCH (09:12)
[2020-09-14] MEDS: SPIRONOLACTONE 25MG TABLET PO SCH (09:13)
[2020-09-14] MEDS: ENOXAPARIN 40MG/0.4ML SYR SUBCUT SCH (09:14)
[2020-09-14] MEDS: QUETIAPINE FUMARATE 25MG TABLET PO SCH ×2 (09:16→18:26)
[2020-09-14 12:00] VITALS: BP 114/55
[2020-09-14 16:00] VITALS: BP 96/64
[2020-09-14 16:06] LABS: PLATELET ESTIMATE NORMAL
[2020-09-14] MEDS: ONDANSETRON HCL 4MG/2ML INJ IV PRN (20:30)
[2020-09-14] MEDS: HYDROCODONE/ACETAMINOPHEN 5/325MG TABLET PO PRN (23:30)
[2020-09-15 04:00] VITALS: BP 116/79
[2020-09-15 06:21] LABS: CHLORIDE 108 mEq/L (98-107)
[2020-09-15] MEDS: BLOOD SUGAR DIAGNOSTIC STRIP TEST SCH (06:31)
[2020-09-15 06:35] LABS: HEMATOCRIT. 39.6 % (36.0-48.0); HEMOGLOBIN. 12.8 g/dL (12.0-16.0); MEAN CORPUSCULAR HEMOGLOBIN 28.4 pg (28.0-32.0); PLATELET 232 x1000/uL (130-400); RED CELL DISTRIBUTION WIDTH 17.5 % (11.6-14.6)
[2020-09-15] MEDS: INSULIN LISPRO 100 UNITS/ML SUBCUT SCH (07:30)
[2020-09-15 07:46] VITALS: BP 114/70
[2020-09-15] MEDS: ATORVASTATIN CALCIUM 40MG TABLET PO SCH (08:40)
[2020-09-15] MEDS: POTASSIUM CHLORIDE 20MEQ TABLET SR PO SCH (08:40)
[2020-09-15] MEDS: QUETIAPINE FUMARATE 25MG TABLET PO SCH (08:40)
[2020-09-15] MEDS: AMIODARONE HCL 200 MG TABLET PO SCH (08:40)
[2020-09-15] MEDS: SPIRONOLACTONE 25MG TABLET PO SCH (08:40)
[2020-09-15] MEDS: ASPIRIN 81MG EC TABLET PO SCH (08:40)
[2020-09-15] MEDS: CARVEDILOL 3.125 MG TABLET PO SCH (08:40)
[2020-09-15] MEDS: CLOPIDOGREL 75MG TABLET PO SCH (08:40)
[2020-09-15] MEDS: LOSARTAN POTASSIUM 25 MG TABLET PO SCH (08:40)
[2020-09-15] MEDS ORDERED: COR3 PO (10:03)
[2020-09-15] MEDS ORDERED: POTA20TA82 PO (10:03)
[2020-09-15] MEDS ORDERED: QUET25TA PO (10:03)
[2020-09-15] MEDS ORDERED: CLOP75TA15 PO (10:03)
[2020-09-15] MEDS ORDERED: SPIR25TA PO (10:03)
[2020-09-15] MEDS ORDERED: ASPI-1406 PO (10:03)
[2020-09-15] MEDS ORDERED: AMI2 PO (10:03)
[2020-09-15] MEDS ORDERED: LIP40 PO (10:03)
[2020-09-15] MEDS ORDERED: FURO40TA5 MT (10:03)
[2020-09-15] MEDS ORDERED: LOSA25TA3 PO (10:03)
[2020-09-15 10:24] VITALS: BP 114/70
[2020-09-15] MEDS ORDERED: NICO-645 TP (10:39)
[2020-09-15 17:28] LABS: PLATELET ESTIMATE NORMAL
== END 2020-09-15 11:26 | disposition home or self-care (01) | DRG 198 ==
LOC: ER 07:27 → 6WST 12:39 → ENRESERV 15:17
PROVIDERS: ADMIT Internal Medicine; ATTEND Internal Medicine
DX: I24.9 Acute ischemic heart disease, unspecified (principal); I11.0 Hypertensive heart disease with heart failure; I42.0 Dilated cardiomyopathy; I50.9 Heart failure, unspecified; E11.9 Type 2 diabetes mellitus without complications; F17.200 Nicotine dependence, unspecified, uncomplicated; I25.2 Old myocardial infarction; E78.5 Hyperlipidemia, unspecified; I25.10 Atherosclerotic heart disease of native coronary artery without angina pectoris; J45.909 Unspecified asthma, uncomplicated; Z86.73 Personal history of transient ischemic attack (TIA), and cerebral infarction without residual deficits; Z88.1 Allergy status to other antibiotic agents; Z79.82 Long term (current) use of aspirin; Z79.899 Other long term (current) drug therapy; F14.11 Cocaine abuse, in remission
CPT/HCPCS: 36415; 71045; 80048; 80053; 80061; 80305; 82550; 82553; 82962; 83036; 83880; 84439; 84443; 84484; 85025; 85379; 90686; 90732; 93005; 93306; 93970; 99285; J1650; J1815; J1940; J2270; J2405

== ENCOUNTER 2020-12-31 18:31 | Inpatient (IN) | payer MEDICAID ==
[~2020-12-31] VITALS: Ht 165.1 cm; Wt 60.3 kg
[~2020-12-31 18:31] MED LIST changes: -ALBU18HF2 IH; +ALBU2.5V13 IH; -AMI2 MT; +AMI2 PO; -ASPI-1406 MT; +ASPI-1406 PO; -ATOR40TA70 MT; -BUDE0.5A3 NEB; -CARV3.1242 MT; -CLOP-31 PO; +CLOP75TA15 PO; +COR3 PO; +FLUT15.844 BOTHNSTRLS; -FLUT1DIS3 INH; -FURO-151 MT; +FURO40TA5 MT; -HYDR-4001 MT; +IBUP-2030 PO; +IPRATROPIUM INH; +LIP40 PO; -LOSA25TA26 MT; +LOSA25TA3 PO; +NICO-645 TP; +NICO-681 TD; +NITR0.4T49 SL; -OLAN10TA19 PO; +PROM6.254 PO
[2020-12-31] MEDS ORDERED: ONDANSETRON HCL 4MG/2ML INJ IV STA (22:32)
[2020-12-31] MEDS ORDERED: MORPHINE SULFATE 4 MG/ML CPJ (NOT FOR IM USE) IV STA (22:32)
[2020-12-31] MEDS ORDERED: ASPIRIN 81MG TABLET PO ONE (22:45)
[2020-12-31 22:53] LABS: BASOPHILS % 0.8 % (0.0-2.0); EOSINOPHILS % 3.2 % (0.0-5.0); HEMATOCRIT. 36.4 % (36.0-48.0); MEAN CORPUSCULAR HEMOGLOBIN 28.5 pg (28.0-32.0); MEAN CORPUSCULAR VOLUME 86.3 fL (81.0-99.0); MEAN PLATELET VOLUME 8.2 fl (7.4-10.4); MONOCYTES % 10.4 % (2.0-8.0); NEUTROPHILS % 66.6 % (40.0-76.0); PLATELET 331 x1000/uL (130-400); RED BLOOD CELL COUNT 4.22 mill/uL (4.2-5.4); RED CELL DISTRIBUTION WIDTH 16.5 % (11.6-14.6)
[2020-12-31 23:01] LABS: CHLORIDE 104 mEq/L (98-107)
[2020-12-31 23:07] LABS: ETHANOL BLOOD < 10 mg/dL
[2021-01-01] MEDS ORDERED: IOHEXOL-350 100 ML BOTTLE ONE (01:38)
[2021-01-01 02:01] LABS: *AMPHETAMINES SCREEN URINE NEGATIVE (NEGATIVE); *BARBITURATES SCREEN URINE NEGATIVE (NEGATIVE); *BENZODIAZEPINES SCREEN URINE NEGATIVE (NEGATIVE)
[2021-01-01 02:02] LABS: *COCAINE SCREEN URINE NEGATIVE (NEGATIVE); CANNABINOID URINE SCREEN NEGATIVE (NEGATIVE); METHADONE URINE SCREEN NEGATIVE (NEGATIVE); OPIATES URINE SCREEN PRESUMTIVE POSITIVE (NEGATIVE); PHENCYCLIDINE URINE SCREEN NEGATIVE (NEGATIVE)
[2021-01-01] MEDS: MORPHINE SULFATE 2 MG/ML CPJ (NOT FOR IM USE) IV PRN ×2 (04:27→09:18)
[2021-01-01] MEDS: ONDANSETRON HCL 4MG/2ML INJ IV PRN ×2 (04:28→09:18)
[2021-01-01] MEDS ORDERED: NALOXONE HCL 0.4MG/ML VIAL IV PRN (04:30)
[2021-01-01] MEDS ORDERED: TRAMADOL 50MG TABLET PO PRN (10:45)
[2021-01-01] MEDS ORDERED: ACETAMINOPHEN 325MG TABLET PO PRN (10:45)
[2021-01-01] MEDS: FUROSEMIDE 40MG/4ML VIAL IVP SCH ×2 (12:26→18:00)
[2021-01-01] MEDS: SPIRONOLACTONE 25MG TABLET PO SCH (17:48)
[2021-01-01] MEDS: HYDROCODONE/ACETAMINOPHEN 5/325MG TABLET PO PRN ×2 (18:11→22:44)
[2021-01-01 20:40] VITALS: BP 116/75
[2021-01-01] MEDS ORDERED: ATORVASTATIN CALCIUM 40MG TABLET PO SCH (21:00)
[2021-01-01] MEDS: METOPROLOL TARTRATE 25MG TABLET PO SCH (21:39)
[2021-01-02] VITALS: BP 103/68
[2021-01-02 04:00] VITALS: BP 130/76
[2021-01-02 05:35] LABS: BASOPHILS % 0.5 % (0.0-2.0); EOSINOPHILS % 1.9 % (0.0-5.0); HEMATOCRIT. 36.5 % (36.0-48.0); HEMOGLOBIN. 11.7 g/dL (12.0-16.0); LYMPHOCYTES % 15.8 % (20.0-50.0); MEAN CORPUSCULAR HEMOGLOBIN 28.4 pg (28.0-32.0); MEAN CORPUSCULAR VOLUME 88.7 fL (81.0-99.0); MEAN PLATELET VOLUME 8.7 fl (7.4-10.4); NEUTROPHILS % 67.8 % (40.0-76.0); PLATELET 279 x1000/uL (130-400); RED BLOOD CELL COUNT 4.12 mill/uL (4.2-5.4); RED CELL DISTRIBUTION WIDTH 16.9 % (11.6-14.6)
[2021-01-02] MEDS: FUROSEMIDE 40MG/4ML VIAL IVP SCH (06:00)
[2021-01-02 06:06] LABS: CHLORIDE 105 mEq/L (98-107)
[2021-01-02 08:18] VITALS: BP 114/84
[2021-01-02] MEDS ORDERED: ASPIRIN 81MG TABLET PO SCH (09:00)
[2021-01-02] MEDS: HYDROCODONE/ACETAMINOPHEN 5/325MG TABLET PO PRN (09:32)
[2021-01-02] MEDS: SPIRONOLACTONE 25MG TABLET PO SCH (09:32)
[2021-01-02] MEDS: METOPROLOL TARTRATE 25MG TABLET PO SCH (09:32)
[2021-01-02 11:07] VITALS: BP 114/84
== END 2021-01-02 15:04 | disposition home or self-care (01) | DRG 194 ==
LOC: ER 18:31 → MICUSO 01-01 10:30 → 6WST 01-01 19:34
PROVIDERS: ADMIT Internal Medicine; ATTEND Internal Medicine
DX: I11.0 Hypertensive heart disease with heart failure (principal); I27.20 Pulmonary hypertension, unspecified; I42.0 Dilated cardiomyopathy; E11.9 Type 2 diabetes mellitus without complications; F20.9 Schizophrenia, unspecified; I25.10 Atherosclerotic heart disease of native coronary artery without angina pectoris; M19.90 Unspecified osteoarthritis, unspecified site; I50.23 Acute on chronic systolic (congestive) heart failure; Z60.2 Problems related to living alone; J44.9 Chronic obstructive pulmonary disease, unspecified; Z82.49 Family history of ischemic heart disease and other diseases of the circulatory system; Z86.73 Personal history of transient ischemic attack (TIA), and cerebral infarction without residual deficits; Z91.19 Patient's noncompliance with other medical treatment and regimen; Z88.1 Allergy status to other antibiotic agents; Z79.82 Long term (current) use of aspirin; Z79.899 Other long term (current) drug therapy; Z71.6 Tobacco abuse counseling; Z72.0 Tobacco use; F14.11 Cocaine abuse, in remission; R79.89 Other specified abnormal findings of blood chemistry
CPT/HCPCS: 36415; 71045; 71275; 80048; 80053; 80305; 80320; 83880; 84484; 85025; 85379; 93005; 99285; J1940; J2270; J2405; Q9967; G0480

== ENCOUNTER 2021-01-07 15:36 | Inpatient (IN) | payer MEDICAID ==
[~2021-01-07] VITALS: Ht 165.1 cm; Wt 62.2 kg
[2021-01-07 17:10] LABS: BASOPHILS % 0.9 % (0.0-2.0); HEMATOCRIT. 35.5 % (36.0-48.0); HEMOGLOBIN. 11.6 g/dL (12.0-16.0); LYMPHOCYTES % 25.3 % (20.0-50.0); MEAN CORPUSCULAR HEMOGLOBIN 28.5 pg (28.0-32.0); MEAN CORPUSCULAR VOLUME 87.5 fL (81.0-99.0); MEAN PLATELET VOLUME 8.7 fl (7.4-10.4); MONOCYTES % 10.1 % (2.0-8.0); NEUTROPHILS % 61.7 % (40.0-76.0); PLATELET 290 x1000/uL (130-400); RED BLOOD CELL COUNT 4.06 mill/uL (4.2-5.4)
[2021-01-07 17:16] LABS: CHLORIDE 105 mEq/L (98-107)
[2021-01-07] MEDS ORDERED: ASPIRIN 81MG TABLET PO ONE (21:15)
[2021-01-07] MEDS ORDERED: NITROGLYCERIN 0.4MG TABLET SL SL PRN ×2 (21:15→22:15)
[2021-01-07] MEDS ORDERED: FUROSEMIDE 40MG TABLET PO ONE (21:15)
[2021-01-07] MEDS ORDERED: HYDROCODONE/ACETAMINOPHEN 5/325MG TABLET PO ONE (21:45)
[2021-01-07] MEDS ORDERED: DOCUSATE SODIUM 100MG CAPSULE PO PRN (22:15)
[2021-01-07] MEDS ORDERED: CLONIDINE 0.1MG TABLET PO PRN (22:15)
[2021-01-07] MEDS ORDERED: ONDANSETRON HCL 4MG/2ML INJ IV PRN (22:15)
[2021-01-07] MEDS ORDERED: MAGNESIUM/ALUMINUM HYDROXIDE/SIMETHICONE 30ML UDC PO PRN (22:15)
[2021-01-07] MEDS ORDERED: ACETAMINOPHEN 325MG TABLET PO PRN (22:15)
[2021-01-07] MEDS ORDERED: IPRATROPIUM/ALBUTEROL 0.5-3(2.5)MG/3ML NEB NEB PRN (22:15)
[2021-01-07] MEDS ORDERED: GUAIFENESIN 200MG/10ML SUGAR FREE UDC PO PRN (22:15)
[2021-01-07] MEDS ORDERED: NALOXONE HCL 0.4MG/ML VIAL IV PRN (22:15)
[2021-01-07 23:11] LABS: CHLORIDE 106 mEq/L (98-107)
[2021-01-07] MEDS ORDERED: IOHEXOL-350 100 ML BOTTLE ONE (23:21)
[2021-01-07 23:34] LABS: HEPATITIS B SURFACE ANTIGEN NEGATIVE
[2021-01-08 00:04] LABS: HEPATITIS A AB IGM NEGATIVE (NEGATIVE)
[2021-01-08] MEDS: HYDROCODONE/ACETAMINOPHEN 5/325MG TABLET PO PRN ×2 (06:32→14:13)
[2021-01-08] MEDS ORDERED: NICOTINE 14MG PATCH TD SCH (09:00)
[2021-01-08 10:34] LABS: BASOPHILS % 1.2 % (0.0-2.0); EOSINOPHILS % 3.5 % (0.0-5.0); HEMATOCRIT. 36.9 % (36.0-48.0); HEMOGLOBIN. 11.7 g/dL (12.0-16.0); LYMPHOCYTES % 28.7 % (20.0-50.0); MEAN CORPUSCULAR HEMOGLOBIN 27.9 pg (28.0-32.0); MEAN PLATELET VOLUME 8.6 fl (7.4-10.4); NEUTROPHILS % 54.6 % (40.0-76.0); PLATELET 263 x1000/uL (130-400); RED CELL DISTRIBUTION WIDTH 16.9 % (11.6-14.6)
[2021-01-08 10:53] LABS: CREATINE KINASE MB FRACTION 2.4 ng/mL (0.5-3.6)
[2021-01-08] MEDS: ASPIRIN 81MG EC TABLET PO SCH (11:43)
[2021-01-08] MEDS: CARVEDILOL 3.125 MG TABLET PO SCH (11:45)
[2021-01-08] MEDS: SPIRONOLACTONE 25MG TABLET PO SCH (11:46)
[2021-01-08] MEDS: LOSARTAN POTASSIUM 25 MG TABLET PO SCH (11:47)
[2021-01-08] MEDS: QUETIAPINE FUMARATE 25MG TABLET PO SCH (11:48)
[2021-01-08] MEDS: FUROSEMIDE 40MG/4ML VIAL IV SCH ×2 (11:48→21:56)
[2021-01-08] MEDS: NICOTINE 14MG PATCH TD SCH (11:49)
[2021-01-08 15:45] LABS: CREATINE KINASE MB FRACTION 2.3 ng/mL (0.5-3.6)
[2021-01-09 01:00] VITALS: BP 125/88
[2021-01-09] MEDS: ATORVASTATIN CALCIUM 40MG TABLET PO SCH ×2 (03:59→21:07)
[2021-01-09] MEDS: CARVEDILOL 3.125 MG TABLET PO SCH ×3 (03:59→21:07)
[2021-01-09] MEDS: QUETIAPINE FUMARATE 25MG TABLET PO SCH ×3 (03:59→17:00)
[2021-01-09 04:00] VITALS: BP 118/82
[2021-01-09] MEDS: HYDROCODONE/ACETAMINOPHEN 5/325MG TABLET PO PRN ×2 (04:00→22:10)
[2021-01-09] MEDS: ENOXAPARIN 40MG/0.4ML SYR SUBCUT SCH ×2 (04:01→21:07)
[2021-01-09] MEDS ORDERED: DEXTROSE 50% WATER 50ML SYRINGE IV PRN (05:00)
[2021-01-09] MEDS: BLOOD SUGAR DIAGNOSTIC STRIP TEST SCH ×4 (07:20→21:07)
[2021-01-09] MEDS: INSULIN LISPRO 100 UNITS/ML SUBCUT SCH ×4 (07:50→21:00)
[2021-01-09 08:00] VITALS: BP 113/75
[2021-01-09] MEDS: NICOTINE 14MG PATCH TD SCH (09:00)
[2021-01-09] MEDS: FUROSEMIDE 40MG/4ML VIAL IV SCH ×2 (09:00→18:25)
[2021-01-09] MEDS: SPIRONOLACTONE 25MG TABLET PO SCH (10:01)
[2021-01-09] MEDS: LOSARTAN POTASSIUM 25 MG TABLET PO SCH (10:01)
[2021-01-09] MEDS: ASPIRIN 81MG EC TABLET PO SCH (10:02)
[2021-01-09 12:00] VITALS: BP 97/67
[2021-01-09 16:00] VITALS: BP 110/66
[2021-01-09 20:41] VITALS: BP 108/69
[2021-01-09 23:46] LABS: CLARITY URINE CLEAR (CLEAR); COLOR URINE YELLOW (YELLOW); KETONES URINE NEGATIVE (NEGATIVE); LEUKOCYTE ESTERASE URINE NEGATIVE (NEGATIVE); NITRITE URINE NEGATIVE (NEGATIVE); OCCULT BLOOD URINE NEGATIVE (NEGATIVE); PROTEIN URINE NEGATIVE (NEGATIVE); SPECIFIC GRAVITY URINE 1.007 (1.005-1.030)
[2021-01-10] VITALS: BP 108/59
[2021-01-10 00:33] LABS: *AMPHETAMINES SCREEN URINE NEGATIVE (NEGATIVE); *BARBITURATES SCREEN URINE NEGATIVE (NEGATIVE); *BENZODIAZEPINES SCREEN URINE NEGATIVE (NEGATIVE); *COCAINE SCREEN URINE NEGATIVE (NEGATIVE); METHADONE URINE SCREEN NEGATIVE (NEGATIVE); OPIATES URINE SCREEN NEGATIVE (NEGATIVE)
[2021-01-10 00:35] LABS: CANNABINOID URINE SCREEN NEGATIVE (NEGATIVE); PHENCYCLIDINE URINE SCREEN NEGATIVE (NEGATIVE)
[2021-01-10 04:00] VITALS: BP 108/58
[2021-01-10] MEDS: BLOOD SUGAR DIAGNOSTIC STRIP TEST SCH ×2 (06:45→12:20)
[2021-01-10 06:46] LABS: BASOPHILS % 1.1 % (0.0-2.0); EOSINOPHILS % 8.4 % (0.0-5.0); HEMATOCRIT. 35.2 % (36.0-48.0); HEMOGLOBIN. 11.5 g/dL (12.0-16.0); LYMPHOCYTES % 25.4 % (20.0-50.0); MEAN CORPUSCULAR HEMOGLOBIN 28.5 pg (28.0-32.0); MEAN CORPUSCULAR VOLUME 87.7 fL (81.0-99.0); MONOCYTES % 11.4 % (2.0-8.0); NEUTROPHILS % 53.7 % (40.0-76.0); PLATELET 262 x1000/uL (130-400); RED BLOOD CELL COUNT 4.01 mill/uL (4.2-5.4); RED CELL DISTRIBUTION WIDTH 17.2 % (11.6-14.6)
[2021-01-10 06:52] LABS: CHLORIDE 103 mEq/L (98-107)
[2021-01-10] MEDS: INSULIN LISPRO 100 UNITS/ML SUBCUT SCH ×2 (07:07→12:25)
[2021-01-10 08:00] VITALS: BP 120/73
[2021-01-10] MEDS: QUETIAPINE FUMARATE 25MG TABLET PO SCH (08:38)
[2021-01-10] MEDS: NICOTINE 14MG PATCH TD SCH (08:39)
[2021-01-10] MEDS: SPIRONOLACTONE 25MG TABLET PO SCH (08:39)
[2021-01-10] MEDS: FUROSEMIDE 40MG/4ML VIAL IV SCH (08:39)
[2021-01-10] MEDS: LOSARTAN POTASSIUM 25 MG TABLET PO SCH (08:39)
[2021-01-10] MEDS: ASPIRIN 81MG EC TABLET PO SCH (08:40)
[2021-01-10] MEDS: CARVEDILOL 3.125 MG TABLET PO SCH (08:40)
[2021-01-10 12:00] VITALS: BP 118/72
[2021-01-10 12:11] VITALS: BP 122/82
== END 2021-01-10 13:44 | disposition home or self-care (01) | DRG 139 ==
LOC: ER 15:36 → MICUSO 21:26 → 6WST 01-08 23:40
PROVIDERS: ADMIT Internal Medicine; ATTEND Internal Medicine
DX: J18.9 Pneumonia, unspecified organism (principal); J96.00 Acute respiratory failure, unspecified whether with hypoxia or hypercapnia; I21.A1 Myocardial infarction type 2; I50.23 Acute on chronic systolic (congestive) heart failure; I11.0 Hypertensive heart disease with heart failure; I27.20 Pulmonary hypertension, unspecified; I42.0 Dilated cardiomyopathy; J44.0 Chronic obstructive pulmonary disease with (acute) lower respiratory infection; K76.1 Chronic passive congestion of liver; I25.110 Atherosclerotic heart disease of native coronary artery with unstable angina pectoris; E11.9 Type 2 diabetes mellitus without complications; M19.90 Unspecified osteoarthritis, unspecified site; F17.200 Nicotine dependence, unspecified, uncomplicated; E78.5 Hyperlipidemia, unspecified; I36.1 Nonrheumatic tricuspid (valve) insufficiency; I34.0 Nonrheumatic mitral (valve) insufficiency; F20.9 Schizophrenia, unspecified; F14.10 Cocaine abuse, uncomplicated; Z88.0 Allergy status to penicillin; Z79.899 Other long term (current) drug therapy; Z79.82 Long term (current) use of aspirin; Z79.891 Long term (current) use of opiate analgesic; Z86.73 Personal history of transient ischemic attack (TIA), and cerebral infarction without residual deficits; Z82.49 Family history of ischemic heart disease and other diseases of the circulatory system; Z91.19 Patient's noncompliance with other medical treatment and regimen; I25.2 Old myocardial infarction
CPT/HCPCS: 36415; 71045; 71275; 80048; 80053; 80061; 80305; 81003; 82550; 82553; 82962; 83036; 83880; 84443; 84484; 85025; 85379; 86705; 86709; 86803; 87340; 87426; 93005; 93970; 99291; C1893; J1650; J1940; Q9967

== ENCOUNTER 2021-01-19 11:24 | Inpatient (IN) | payer MEDICAID ==
[~2021-01-19] VITALS: Ht 152.4 cm; Wt 65.8 kg
[2021-01-19] MEDS ORDERED: NITROGLYCERIN OINT 1GM/INCH UDPKT TD ONE (12:45)
[2021-01-19] MEDS ORDERED: ASPIRIN 81MG TABLET PO ONE (12:45)
[2021-01-19 13:11] LABS: BASOPHILS % 1.4 % (0.0-2.0); EOSINOPHILS % 9.2 % (0.0-5.0); HEMATOCRIT. 39.4 % (36.0-48.0); HEMOGLOBIN. 12.6 g/dL (12.0-16.0); LYMPHOCYTES % 21.1 % (20.0-50.0); MEAN CORPUSCULAR VOLUME 87.7 fL (81.0-99.0); MEAN PLATELET VOLUME 8.2 fl (7.4-10.4); MONOCYTES % 9.1 % (2.0-8.0); NEUTROPHILS % 59.2 % (40.0-76.0); PLATELET 330 x1000/uL (130-400); RED BLOOD CELL COUNT 4.49 mill/uL (4.2-5.4); RED CELL DISTRIBUTION WIDTH 17.3 % (11.6-14.6)
[2021-01-19 13:14] LABS: CHLORIDE 110 mEq/L (98-107)
[2021-01-19 13:15] LABS: INR 1.2; PROTHROMBIN TIME 12.4 sec (9.6-11.0)
[2021-01-19 13:21] LABS: ETHANOL BLOOD < 10 mg/dL
[2021-01-19 13:27] LABS: *AMPHETAMINES SCREEN URINE NEGATIVE (NEGATIVE); *BARBITURATES SCREEN URINE NEGATIVE (NEGATIVE); *BENZODIAZEPINES SCREEN URINE NEGATIVE (NEGATIVE); *COCAINE SCREEN URINE NEGATIVE (NEGATIVE); CANNABINOID URINE SCREEN NEGATIVE (NEGATIVE); METHADONE URINE SCREEN NEGATIVE (NEGATIVE); OPIATES URINE SCREEN NEGATIVE (NEGATIVE); PHENCYCLIDINE URINE SCREEN NEGATIVE (NEGATIVE)
[2021-01-19] MEDS ORDERED: MORPHINE SULFATE 4 MG/ML CPJ (NOT FOR IM USE) IV ONE (17:15)
[2021-01-19] MEDS ORDERED: ONDANSETRON HCL 4MG/2ML INJ IV ONE (17:15)
[2021-01-19] MEDS ORDERED: CLONIDINE 0.1MG TABLET PO PRN (21:15)
[2021-01-19] MEDS ORDERED: NALOXONE HCL 0.4MG/ML VIAL IV PRN (21:15)
[2021-01-19] MEDS ORDERED: ACETAMINOPHEN 325MG TABLET PO PRN (21:15)
[2021-01-19] MEDS ORDERED: ONDANSETRON HCL 4MG/2ML INJ IV PRN (21:15)
[2021-01-19] MEDS ORDERED: LORAZEPAM 2MG/ML CPJ IV PRN (21:15)
[2021-01-19] MEDS ORDERED: ENOXAPARIN 40MG/0.4ML SYR SUBCUT SCH (21:30)
[2021-01-20] VITALS (8 sets, daily range): BP systolic 101–106; BP diastolic 66–75
[2021-01-20 00:44] LABS: CREATINE KINASE MB FRACTION 2.1 ng/mL (0.5-3.6)
[2021-01-20] MEDS: MORPHINE SULFATE 2 MG/ML CPJ (NOT FOR IM USE) IV PRN ×2 (01:35→05:37)
[2021-01-20] MEDS ORDERED: ASPIRIN 81MG EC TABLET PO SCH (09:00)
[2021-01-20] MEDS ORDERED: FOLIC ACID 1MG TABLET PO SCH (09:00)
[2021-01-20] MEDS: FUROSEMIDE 40MG/4ML VIAL IVP SCH ×2 (09:00→09:02)
[2021-01-20 09:45] LABS: BASOPHILS % 1.2 % (0.0-2.0); EOSINOPHILS % 10.4 % (0.0-5.0); HEMATOCRIT. 37.8 % (36.0-48.0); LYMPHOCYTES % 18.1 % (20.0-50.0); MEAN CORPUSCULAR HEMOGLOBIN 28.1 pg (28.0-32.0); MEAN CORPUSCULAR VOLUME 88.5 fL (81.0-99.0); MEAN PLATELET VOLUME 8.3 fl (7.4-10.4); MONOCYTES % 10.8 % (2.0-8.0); NEUTROPHILS % 59.5 % (40.0-76.0); PLATELET 339 x1000/uL (130-400); RED BLOOD CELL COUNT 4.28 mill/uL (4.2-5.4); RED CELL DISTRIBUTION WIDTH 16.7 % (11.6-14.6)
[2021-01-20 09:58] LABS: CHLORIDE 106 mEq/L (98-107)
[2021-01-20 10:08] LABS: PHOSPHORUS 3.9 mg/dL (2.5-4.9)
[2021-01-20 10:12] LABS: CREATINE KINASE 34 IU/L (26-192); CREATINE KINASE MB FRACTION 1.8 ng/mL (0.5-3.6)
[2021-01-20] MEDS: HYDROCODONE/ACETAMINOPHEN 5/325MG TABLET PO PRN ×2 (11:00→15:52)
[2021-01-20] MEDS ORDERED: MAGNESIUM OXIDE 400MG TABLET PO SCH (11:00)
[2021-01-20 12:22] LABS: CLARITY URINE CLEAR (CLEAR); COLOR URINE YELLOW (YELLOW); KETONES URINE NEGATIVE (NEGATIVE); LEUKOCYTE ESTERASE URINE NEGATIVE (NEGATIVE); NITRITE URINE NEGATIVE (NEGATIVE); OCCULT BLOOD URINE NEGATIVE (NEGATIVE); PROTEIN URINE NEGATIVE (NEGATIVE); SPECIFIC GRAVITY URINE 1.008 (1.005-1.030); UROBILINOGEN URINE 0.2 E.U./dL (0.2-1.0)
[2021-01-20] MEDS ORDERED: NITROGLYCERIN OINT 1GM/INCH UDPKT TD SCH (14:00)
[2021-01-20] MEDS ORDERED: HYDR-4009 MT (16:37)
[2021-01-20] MEDS ORDERED: ASPI-1406 PO (16:37)
== END 2021-01-20 22:30 | disposition home or self-care (01) | DRG 190 ==
LOC: ER 11:24 → SUPCPDRO 15:21 → MICUSO 16:26 → SUPCPDRO 21:04 → 8WST 01-20 03:22
PROVIDERS: ADMIT Internal Medicine Nephrology; ATTEND Internal Medicine Nephrology
DX: I21.4 Non-ST elevation (NSTEMI) myocardial infarction (principal); I50.23 Acute on chronic systolic (congestive) heart failure; E44.1 Mild protein-calorie malnutrition; I27.20 Pulmonary hypertension, unspecified; I42.0 Dilated cardiomyopathy; I11.0 Hypertensive heart disease with heart failure; E83.42 Hypomagnesemia; J44.9 Chronic obstructive pulmonary disease, unspecified; I25.10 Atherosclerotic heart disease of native coronary artery without angina pectoris; F17.210 Nicotine dependence, cigarettes, uncomplicated; E87.8 Other disorders of electrolyte and fluid balance, not elsewhere classified; I08.1 Rheumatic disorders of both mitral and tricuspid valves; E11.9 Type 2 diabetes mellitus without complications; F20.9 Schizophrenia, unspecified; M19.90 Unspecified osteoarthritis, unspecified site; Z88.1 Allergy status to other antibiotic agents; Z86.73 Personal history of transient ischemic attack (TIA), and cerebral infarction without residual deficits; Z71.6 Tobacco abuse counseling; I25.2 Old myocardial infarction; Z82.49 Family history of ischemic heart disease and other diseases of the circulatory system; Z91.19 Patient's noncompliance with other medical treatment and regimen; Z68.28 Body mass index [BMI] 28.0-28.9, adult; F14.11 Cocaine abuse, in remission
CPT/HCPCS: 36415; 71045; 80048; 80053; 80305; 80320; 81003; 82550; 82553; 83735; 83880; 84100; 84484; 85025; 93005; 93306; 99285; J1650; J1940; J2270; J2405; G0480

== ENCOUNTER 2021-02-04 17:26 | Inpatient (IN) | payer MEDICAID ==
[~2021-02-04] VITALS: Ht 165.1 cm; Wt 60.9 kg
[~2021-02-04 17:26] MED LIST changes: +HYDR-4009 MT
[2021-02-04 18:48] LABS: CHLORIDE 103 mEq/L (98-107)
[2021-02-04 18:49] LABS: BASOPHILS % 1.3 % (0.0-2.0); EOSINOPHILS % 5.1 % (0.0-5.0); HEMATOCRIT. 39.6 % (36.0-48.0); HEMOGLOBIN. 12.5 g/dL (12.0-16.0); MEAN CORPUSCULAR HEMOGLOBIN 27.6 pg (28.0-32.0); MEAN CORPUSCULAR VOLUME 87.7 fL (81.0-99.0); MEAN PLATELET VOLUME 9.2 fl (7.4-10.4); MONOCYTES % 10.1 % (2.0-8.0); NEUTROPHILS % 59.5 % (40.0-76.0); PLATELET 272 x1000/uL (130-400); RED BLOOD CELL COUNT 4.51 mill/uL (4.2-5.4); RED CELL DISTRIBUTION WIDTH 16.9 % (11.6-14.6)
[2021-02-04] MEDS ORDERED: FUROSEMIDE 40MG/4ML VIAL IVP NR (19:30)
[2021-02-04] MEDS ORDERED: MORPHINE SULFATE 4 MG/ML CPJ (NOT FOR IM USE) IV ONE (19:45)
[2021-02-04] MEDS ORDERED: CLONIDINE 0.2MG TABLET PO ONE (23:15)
[2021-02-05] MEDS ORDERED: MORPHINE SULFATE 2 MG/ML CPJ (NOT FOR IM USE) IV PRN (04:00)
[2021-02-05] MEDS ORDERED: NALOXONE HCL 0.4MG/ML VIAL IV PRN (04:30)
[2021-02-05 05:00] VITALS: BP 135/92
[2021-02-05 08:00] VITALS: BP 130/90
[2021-02-05 08:55] LABS: BASOPHILS % 1.1 % (0.0-2.0); EOSINOPHILS % 4.6 % (0.0-5.0); HEMATOCRIT. 37.6 % (36.0-48.0); MEAN CORPUSCULAR VOLUME 87.5 fL (81.0-99.0); MEAN PLATELET VOLUME 9.2 fl (7.4-10.4); MONOCYTES % 9.2 % (2.0-8.0); NEUTROPHILS % 58.1 % (40.0-76.0); PLATELET 258 x1000/uL (130-400); RED CELL DISTRIBUTION WIDTH 16.8 % (11.6-14.6)
[2021-02-05] MEDS ORDERED: LOSARTAN POTASSIUM 50 MG TABLET PO SCH (09:00)
[2021-02-05] MEDS ORDERED: FUROSEMIDE 40MG/4ML VIAL IVP SCH (09:00)
[2021-02-05] MEDS ORDERED: ASPIRIN 81MG TABLET PO SCH (09:00)
[2021-02-05] MEDS ORDERED: ENOXAPARIN 40MG/0.4ML SYR SUBCUT SCH (09:00)
[2021-02-05 09:04] LABS: CHLORIDE 102 mEq/L (98-107)
[2021-02-05] MEDS ORDERED: SPIRONOLACTONE 25MG TABLET PO SCH (09:45)
[2021-02-05 12:00] VITALS: BP 123/94
[2021-02-05 12:36] VITALS: BP 123/94
[2021-02-05] MEDS ORDERED: FURO-151 MT (12:41)
[2021-02-05] MEDS ORDERED: CARVEDILOL 6.25 MG TABLET PO SCH (13:00)
[2021-02-05] MEDS ORDERED: ATORVASTATIN CALCIUM 40MG TABLET PO SCH (21:00)
== END 2021-02-05 16:50 | disposition home or self-care (01) | DRG 194 ==
LOC: ER 17:26 → 8WST 02-05 01:09 → ENRESERV 02-05 02:02
PROVIDERS: ADMIT Internal Medicine; ATTEND Internal Medicine
DX: I11.0 Hypertensive heart disease with heart failure (principal); I21.4 Non-ST elevation (NSTEMI) myocardial infarction; E44.1 Mild protein-calorie malnutrition; I42.0 Dilated cardiomyopathy; I50.23 Acute on chronic systolic (congestive) heart failure; E87.1 Hypo-osmolality and hyponatremia; E87.5 Hyperkalemia; F17.210 Nicotine dependence, cigarettes, uncomplicated; I34.0 Nonrheumatic mitral (valve) insufficiency; R74.01 Elevation of levels of liver transaminase levels; R00.0 Tachycardia, unspecified; J44.9 Chronic obstructive pulmonary disease, unspecified; E11.9 Type 2 diabetes mellitus without complications; F20.9 Schizophrenia, unspecified; F14.10 Cocaine abuse, uncomplicated; I36.1 Nonrheumatic tricuspid (valve) insufficiency; Z86.73 Personal history of transient ischemic attack (TIA), and cerebral infarction without residual deficits; Z76.5 Malingerer [conscious simulation]; Z79.82 Long term (current) use of aspirin; Z79.891 Long term (current) use of opiate analgesic; Z88.1 Allergy status to other antibiotic agents; Z88.0 Allergy status to penicillin; Z79.899 Other long term (current) drug therapy; Z82.49 Family history of ischemic heart disease and other diseases of the circulatory system; I25.2 Old myocardial infarction; Z91.19 Patient's noncompliance with other medical treatment and regimen
CPT/HCPCS: 36415; 71045; 80048; 80053; 83880; 84484; 85025; 93005; 99285; J1650; J1940; J2270

== ENCOUNTER 2021-03-08 09:36 | Emergency (ER) | payer MEDICAID ==
[~2021-03-08] VITALS: Ht 165.1 cm; Wt 64.0 kg
[~2021-03-08 09:36] MED LIST changes: +FURO-151 MT
[2021-03-08] MEDS ORDERED: TRANEXAMIC ACID 1,000 MG/10 ML TP ONE (10:15)
[2021-03-08 11:29] LABS: BASOPHILS % 0.9 % (0.0-2.0); EOSINOPHILS % 4.1 % (0.0-5.0); HEMOGLOBIN. 13.4 g/dL (12.0-16.0); MEAN CORPUSCULAR HEMOGLOBIN 27.1 pg (28.0-32.0); MEAN CORPUSCULAR VOLUME 87.2 fL (81.0-99.0); MEAN PLATELET VOLUME 8.7 fl (7.4-10.4); MONOCYTES % 12.9 % (2.0-8.0); NEUTROPHILS % 58.1 % (40.0-76.0); PLATELET 235 x1000/uL (130-400); RED BLOOD CELL COUNT 4.93 mill/uL (4.2-5.4); RED CELL DISTRIBUTION WIDTH 17.8 % (11.6-14.6)
[2021-03-08] MEDS ORDERED: ACET325C7 PO (12:03)
[2021-03-08 12:42] VITALS: BP 105/58
== END 2021-03-08 12:51 | disposition home or self-care (01) ==
LOC: ER 09:54
DX: K06.8 Other specified disorders of gingiva and edentulous alveolar ridge (principal); I11.0 Hypertensive heart disease with heart failure; I50.9 Heart failure, unspecified; Z88.0 Allergy status to penicillin; Z88.6 Allergy status to analgesic agent; Z79.899 Other long term (current) drug therapy; Z86.73 Personal history of transient ischemic attack (TIA), and cerebral infarction without residual deficits
CPT/HCPCS: 36415; 85025; 99283